=== PATIENT | female | born 1995 | race Hispanic/Latino ===

== ENCOUNTER 2021-02-21 13:43 | Emergency (ER) | payer OTHER ==
[~2021-02-21] VITALS: Ht 162.6 cm; Wt 81.0 kg
[2021-02-21] MEDS ORDERED: PREDNISONE50 MG PO (13:55)
[2021-02-21] MEDS ORDERED: PREDNISONE 20 MG TAB ONE (14:04)
[2021-02-21] MEDS ORDERED: PREDNISONE 20 MG TAB PO ONE (14:15)
== END 2021-02-21 14:11 | disposition home or self-care (01) ==
LOC: FSED 13:47
DX: R21 Rash and other nonspecific skin eruption (principal)
CPT/HCPCS: 99283; J7512

== ENCOUNTER 2021-03-10 08:21 | Emergency (ER) | payer OTHER ==
[~2021-03-10] VITALS: Ht 162.6 cm; Wt 81.7 kg
[~2021-03-10 08:21] MED LIST: PREDNISONE50 MG PO
[2021-03-10] MEDS ORDERED: ONDANSETRON HCL INJ 2MG/ML 2ML 2 MG/ML VIAL IV STA (09:06)
[2021-03-10] MEDS ORDERED: ONDANSETRON HCL INJ 2MG/ML 2ML 2 MG/ML VIAL ONE (09:12)
[2021-03-10] MEDS ORDERED: ONDANSETRON ODT4 MG PO (10:57)
== END 2021-03-10 11:27 | disposition home or self-care (01) ==
LOC: FSED 08:49
DX: R10.13 Epigastric pain (principal); R11.2 Nausea with vomiting, unspecified
CPT/HCPCS: 80053; 80076; 81003; 81025; 85025; 96374; 99283; J2405

== ENCOUNTER 2021-09-15 15:55 | Emergency (ER) | payer OTHER ==
[~2021-09-15] VITALS: Ht 162.6 cm; Wt 85.3 kg
[~2021-09-15 15:55] MED LIST changes: +ONDANSETRON ODT4 MG PO
[2021-09-15] MEDS ORDERED: HYDROCODONE/APAP 5MG-325MG TAB PO ONE (16:45)
[2021-09-15] MEDS ORDERED: CEFTRIAXONE 1 GM VIAL IM ONE (16:45)
[2021-09-15] MEDS ORDERED: ONDANSETRON HCL 4 MG ORAL DISINTEGRATING TAB PO ONE (16:45)
[2021-09-15] MEDS ORDERED: IBUPROFEN200 MG PO (16:50)
[2021-09-15] MEDS ORDERED: CEFDINIR300 MG PO (16:50)
[2021-09-15] MEDS ORDERED: ONDANSETRON ODT4 MG PO (16:50)
[2021-09-15] MEDS ORDERED: IBUPROFEN 600 MG TAB PO ONE (17:00)
[2021-09-15] MEDS ORDERED: IBUPROFEN 600 MG TAB ONE (17:16)
[2021-09-15] MEDS ORDERED: ONDANSETRON HCL 4 MG ORAL DISINTEGRATING TAB ONE (17:17)
[2021-09-15] MEDS ORDERED: CEFTRIAXONE 1 GM VIAL ONE (17:17)
[2021-09-15] MEDS ORDERED: HYDROCODONE/APAP 5MG-325MG TAB ONE (17:17)
== END 2021-09-15 17:38 | disposition home or self-care (01) ==
LOC: FSED 16:03
DX: R30.0 Dysuria (principal); N12 Tubulo-interstitial nephritis, not specified as acute or chronic; N39.0 Urinary tract infection, site not specified
CPT/HCPCS: 81003; 81025; 99283; J0696; Q0162